=== PATIENT | female | born 1950 | race Caucasian/White ===

== ENCOUNTER → 2017-01-06 | Outpatient (CLI) | payer BC ==
[~2017-01-06] MED LIST: ASPI-232 PO; CALC500C70 PO; CITA10TA4 PO; LEVO112T4 PO; LEVO125T4 PO; NAPR1TAB9 PO; OXYC-57 PO; VAREPAK PO; WARF2TAB PO
--- NOTE | 2017-01-06 09:13 | DIAGNOSTIC IMAGING REPORT ---
RIGHT WRIST MIN 3 VIEWS ROUTINE CLINICAL HISTORY: RIGHT WRIST PAIN Right trauma. Pain. COMPARISON: None. DISCUSSION: Severe degenerative change first carpometacarpal joint. Mild degenerative change second carpometacarpal joint. Intercarpal joints are unremarkable. Radiocarpal joint shows minimal degenerative change. There is no evidence for soft tissue swelling. IMPRESSION: Significant degenerative change first carpometacarpal joint. Minimal degenerative change throughout all remaining osseous structures. Electronically signed by: Jose Armando Poole M.D. 01/06/2017 9:12 AM Dictated Date/Time: 01/06/2017 9:11 AM
== END | disposition home or self-care (01) ==
LOC: C.RDSM 08:10
PROVIDERS: ATTEND Physical Medicine & Rehabilitation Sports Medicine
DX: M25.531 Pain in right wrist (principal)

== ENCOUNTER → 2017-03-04 | Day surgery (SDC) | payer BC ==
[2017-02-20 12:32] LABS: HEMATOCRIT 42.1 % (37-47); MEAN CELL VOLUME 96.3 fL (80-100); MEAN CORPUSCULAR HEMOGLOBIN 31.6 pg (25-34); MEAN CORPUSCULAR HGB CONC 32.8 g/dl (32-36); PLATELET COUNT 239 K/uL (130-400); RED BLOOD COUNT 4.37 M/uL (4.2-5.4)
[2017-02-20 14:35] LABS: BLOOD UREA NITROGEN 21 mg/dl (7-18); CREATININE 0.76 mg/dl (0.60-1.20); GLUCOSE 82 mg/dl (70-99)
[2017-02-20 14:36] LABS: BUN/CREATININE RATIO 27.9 (10-20); CARBON DIOXIDE 30 mmol/L (21-32); CHLORIDE 107 mmol/L (98-107); POTASSIUM 3.9 mmol/L (3.5-5.1); SODIUM 143 mmol/L (136-145)
[2017-02-20 14:39] LABS: ALB/GLOB RATIO 1.2 (0.9-2); ALKALINE PHOSPHATASE 73 U/L (45-117); ALT/SGPT 19 U/L (12-78); AST/SGOT 17 U/L (15-37)
[2017-02-20 15:09] LABS: CALCIUM 9.3 mg/dl (8.5-10.1)
[2017-02-21 09:09] VITALS: Ht 165.1 cm; Wt 87.7 kg
[~2017-03-04] VITALS: Ht 165.1 cm; Wt 87.7 kg
[~2017-03-04] MED LIST changes: +ATROPINE SULFATE 0.1 MG/ML 5ML SYR IV PRN; +BUPIVACAINE 0.5 % 5 MG/1 ML PF 10ML VIAL ONE; +CEFAZOLIN 2000 MG/60 ML D5W IV SCH; +EpHEDrine SULFATE INJ 50 MG/ML AMP IV PRN; +FENTANYL CITRATE INJ 50 MCG/1 ML 2 ML VIAL IV PRN; +FENTANYL CITRATE INJ 50 MCG/1 ML 2 ML VIAL ONE; +LACTATED RINGER'S 1000ML 1,000 ML IV SCH; -LEVO125T4 PO; +LEVO125T5 PO; +LIDOCAINE HCL 2% 2 ML VIAL (20MG/ML) ONE; +LIDOCAINE HCL 2% LOCAL 20 ML VIAL ONE; +MIDAZOLAM HCL 1 MG/ML 2ML VIAL ONE; +ONDANSETRON INJ 2 MG/ML 2 ML VIAL IV PRN; +PROPOFOL IV EMULSION 10 MG/ML 20 ML VIAL IV ONE; +SODIUM CHLORIDE 0.9% 1000ML 1,000 ML IV SCH
--- NOTE | 2017-03-04 06:43 | History & Physical Bridge Note ---
H&P Re-Evaluation Bridge Note: I have examined the patient, reviewed the History & Physical and in the interval since the performance of the History & Physical I have noted the following changes of clinical significance: No changes noted
--- NOTE | 2017-03-04 06:45 | Discharge Instructions ---
Discharge Instructions Date of Service Mar 04, 2017. Visit Reason for Visit: Right Carpal Tunnel Syndrome Discharge Discharge Diagnosis / Problem: same Discharge Goals Goal(s): Decrease discomfort, Improve function Medications Stopped Medications Name(s): na Restart Stopped Medication(s): resume all scripts as directed Activity Recommendations Activity Limitations: as noted below Lifting Limitations: until after follow-up appointment Exercise/Sports Limitations: until after follow-up appointment May Resume Sexual Activity: when tolerated Shower/Bathe: keep incision dry Driving or Machine Use: no limitations Anesthesia . Post Anesthesia Instructions: If you have had General Anesthesia or IV Sedation: * Do not drive today. * Resume driving when surgeon permits. * Do not make important decisions or sign legal documents today. * Call surgeon for: 1. Temperature elevations greater than 101 degrees F. 2. Uncontrollable pain. 3. Excessive bleeding. 4. Persistent nausea and vomiting. 5. Medication intolerance (nausea, vomiting or rash). * For nausea and vomiting use only clear liquids such as: tea, soda, bouillon until nausea subsides, then gradually increase diet as tolerated. * If you have any concerns or questions, call your surgeon's office. If physician is unavailable and it is an emergency, call 911 or go to the nearest emergency room. . Instructions / Follow-Up Instructions / Follow-Up The following are instructions to follow after minor hand surgery. ACTIVITY RECOMMENDATIONS: * Minimize activity until your first visit after surgery. * No excessive walking, jogging, sports or laboring. * Return to activity is individualized. Most patients are able to return to everyday activities within 2 weeks. * Return to sports or intensive labor usually occurs at 1-2 months. * DRIVING: Driving may be resumed when you feel you have adequate pain control and use of the hand. * BATHING: You may shower or sponge-bathe immediately after surgery. The dressing will need to be covered with a plastic bag or plastic wrap until the dressing is changed on the fourth or fifth day after surgery. Once the dressing has been changed on the fourth or fifth day after surgery, you may shower and get the incision wet. * Wash with regular soap and water. * Do not bathe (submerge the incision), soak, swim or use a hot tub until the incision is completely healed over with normal skin and the doctor has given the OK to proceed. * There is no need to apply any ointments, powders or salves to your incision. * Do not apply alcohol or hydrogen peroxide directly to the incision. Diluted peroxide (50:50 mixture with sterile saline) may be used to clean dried blood from around the incision area. WORK/SCHOOL: * You may return to sedentary work or school when you are feeling comfortable. This is usually 3-7 days after surgery. * Expect increased discomfort with increased activity. Continue to elevate and ice the hand as much as possible. DIET: * Resume previous diet. MEDICATIONS: * You will have a prescription for pain medication and an anti-inflammatory medication after surgery. Use the pain pills for severe pain and the anti-inflammatory for less severe pain. * Once the pain pills have run out, try to use the anti-inflammatory. If this is not effective then contact the office for assistance. * The pain medication may cause nausea, constipation and sleepiness. You should see how they affect you before driving or similar activity. * The anti-inflammatory may cause stomach upset and bleeding. If this occurs, let your doctor know immediately . * Some patients may need blood clot prevention. This can be done with either a pill or a simple shot. Your doctor will advise you on when to begin these medications and how to take them. * Do not take aspirin or other anti-inflammatory products (i.e. Advil or Aleve ) if taking blood thinner medication. * Take a stool softener like Colace or a stimulant like Senokot to prevent constipation. SPECIAL CARE INSTRUCTIONS: ICE: * Do not apply ice directly to the skin. * Use a thin dressing or stockinet between the skin and ice bag. The dressing in place after surgery will suffice. * Apply ice for 20-30 minutes and repeat every 2-4 hours. This is especially important for the first 3-7 days after surgery. * Once the pain improves, use ice as needed. ELEVATION: * Keep your hand elevated at or above the level of your heart as much as possible. * Expect some increased discomfort and swelling if you allow your hand to hang down for any length of time. DRESSING: * Your dressing will be changed 4-5 days after surgery by the physical therapist or physician's bakery assistant. Leave your dressing intact until this time. * You may then change your dressing daily with clean dry gauze or Band-aids and a soft wrap or stockinet. * Always wash your hands prior to touching the incision area. * Once the stitches are removed, you may leave the wound open to air or cover with a thin bandage. * There is no need to apply any ointments, powders or salves to your incision. * Expect some bloody drainage for the first few days after surgery. * Leave the tape strips in place (if present) for 5-7 days. * The initial dressing after surgery may become soaked with blood or fluid which is normal. You may reinforce your dressing with clean, dry gauze as needed. BRACE: * Bracing is generally not needed after routine hand surgery. THERAPY: * Physical therapy may be prescribed after your surgery. * For carpal tunnel and trigger digit surgery you may begin moving your fingers and wrist immediately after surgery as tolerated. * Be careful to not overuse. * Once the sutures are removed, further range of motion exercises can be performed. * Hand incisions may be very sensitive for a few months after surgery so avoid excessive pressure on the incision. If necessary, use a padded weightlifters' glove. * You may massage the incision with skin cream to make it less sensitive and reduce scarring. * Hand strength usually returns with normal use. * If needed, squeezing a soft sponge or Play-dough may help. * Your doctor will recommend physical therapy if necessary. PROBLEMS/QUESTIONS: * If you have any problems such as severe pain, numbness, tingling or high fevers or if you have any questions, please contact the office at [phone]. * It is not uncommon to have some numbness and tingling after the surgery especially if you have had a nerve block done. This should gradually improve over the first 1- 2 days. If this persists longer or worsens then contact the office. FOLLOW UP VISIT: * If not already scheduled, please call the office at to schedule follow-up appointments for approximately 10 days, 6 weeks and 3 months after surgery. Diet Recommendations Recommended Home Diet: resume previous diet Procedures Procedures Performed: righ carpal tunnel release Pending Studies Studies pending at discharge: no Medical Emergencies . Who to Call and When: Medical Emergencies: If at any time you feel your situation is an emergency, please call 911 immediately. . Non-Emergent Contact Non-Emergency issues call your: Specialist Call Non-Emergent contact if: temperature is above 101.5 . . "Provider Documentation" section prepared by Braden Mcgrath. .
--- NOTE | 2017-03-04 07:27 | [facility] Post Operative Brief Note ---
Immediate Operative Summary Operative Date Mar 04, 2017. Pre-Operative Diagnosis Right Carpal Tunnel Syndrome Post-Operative Diagnosis Same Procedure(s) Performed [facility] carpal tunnel release Surgeon Dr Mcgrath Utility Worker Surgeon(s) Dr Sun Adams Estimated Blood Loss Trace Findings CTS Fluids (cc crystalloids) 400cc Specimens None Drains none Anesthesia local/sedation Complication(s) None Disposition Recovery Room / PACU
[2017-03-04 07:31] VITALS: TEMP 36.6
--- NOTE | 2017-03-04 07:46 | OPERATIVE REPORT ---
DATE OF OPERATION: 03/04/2017 SURGEON: Dr. Mcgrath. PROTOZOOLOGIST: Dr. Garsia. PREOPERATIVE DIAGNOSIS: Severe carpal tunnel syndrome, right upper extremity. POSTOPERATIVE DIAGNOSIS: Same. OPERATION PERFORMED: Right carpal tunnel release with local by surgeon and IV sedation by anesthesia. PERIOPERATIVE SITUATION: Medically cleared female with intractable carpal tunnel complaints. EMG nerve conduction study and physical exam consistent with same. X-ray also reveals basal joint arthritis which will not be addressed today. OPERATION: The patient appropriately identified, site verified, consent verified, 2 grams of Ancef confirmed as being given. The arm was then anesthetized with 4 mL of 0.5% Marcaine plain and 4 mL of 2% plain lidocaine. Tourniquet was then applied and the arm was prepped and draped in usual routine fashion. Tourniquet inflated to 250 mmHg with exsanguination of limb with a rubber Esmarch bandage for a total of approximately 11 minutes. A curvilinear incision made based on the fourth ray. Sharp dissection carried through skin and blunt dissection down to the palmar fascia. This was then incised under direct vision. Transverse carpal ligament and antebrachial fascia identified, it was incised about 0.5 cm proximal hook of the hamate to the superficial palmar arch. The nerve became hyperemic. The floor of the carpal canal had no masses. The wound was then irrigated and closed with horizontal 4-0 nylon mattress sutures, Dermabond, appropriate dressing, and a splint. The patient transferred to the holding area in satisfactory condition, having tolerated the procedure well. Estimated blood loss trace. Crystalloid 400 mL. No DVT prophylaxis required. I attest to the content of the Intraoperative Record and any orders documented therein. Any exceptio ns are noted below.
[2017-03-04 07:57] VITALS: BP 112/69; PULSE 82; O2SAT 95
--- NOTE | 2017-03-04 07:57 | Anesthesia Progress Nt - [facility] ---
Anesthesia Post Op Note Date & Time Mar 04, 2017 at 07:56 Vital Signs Pain Intensity: 0 Vital Signs Past 12 Hours Date Time Temp Pulse Resp B/P Pulse Ox O2 Delivery O2 Flow Rate FiO2 03/04/17 07:31 36.6 87 18 106/70 95 Room Air 03/04/17 06:23 36.7 96 20 139/60 95 Room Air Notes Mental Status: alert / awake / arousable, participated in evaluation Pt Amnestic to Procedure: Yes Nausea / Vomiting: adequately controlled Pain: adequately controlled Airway Patency, RR, SpO2: stable & adequate BP & HR: stable & adequate Hydration State: stable & adequate Anesthetic Complications: no major complications apparent
== END | disposition home or self-care (01) ==
LOC: X.SURG 06:14
PROVIDERS: ATTEND Physical Medicine & Rehabilitation Sports Medicine
DX: G56.01 Carpal tunnel syndrome, right upper limb (principal); E03.9 Hypothyroidism, unspecified; E66.9 Obesity, unspecified; M19.90 Unspecified osteoarthritis, unspecified site; F32.9 Major depressive disorder, single episode, unspecified; F17.200 Nicotine dependence, unspecified, uncomplicated; Z79.82 Long term (current) use of aspirin; Z87.442 Personal history of urinary calculi; Z86.718 Personal history of other venous thrombosis and embolism; Z83.3 Family history of diabetes mellitus; Z80.0 Family history of malignant neoplasm of digestive organs

== ENCOUNTER → 2017-06-06 | Outpatient (CLI) | payer OTHER ==
[~2017-06-06] MED LIST changes: -ATROPINE SULFATE 0.1 MG/ML 5ML SYR IV PRN; -BUPIVACAINE 0.5 % 5 MG/1 ML PF 10ML VIAL ONE; -CEFAZOLIN 2000 MG/60 ML D5W IV SCH; -EpHEDrine SULFATE INJ 50 MG/ML AMP IV PRN; -FENTANYL CITRATE INJ 50 MCG/1 ML 2 ML VIAL IV PRN; -FENTANYL CITRATE INJ 50 MCG/1 ML 2 ML VIAL ONE; -LACTATED RINGER'S 1000ML 1,000 ML IV SCH; +LEVO125T4 PO; -LEVO125T5 PO; -LIDOCAINE HCL 2% 2 ML VIAL (20MG/ML) ONE; -LIDOCAINE HCL 2% LOCAL 20 ML VIAL ONE; -MIDAZOLAM HCL 1 MG/ML 2ML VIAL ONE; -ONDANSETRON INJ 2 MG/ML 2 ML VIAL IV PRN; -PROPOFOL IV EMULSION 10 MG/ML 20 ML VIAL IV ONE; -SODIUM CHLORIDE 0.9% 1000ML 1,000 ML IV SCH
--- NOTE | 2017-06-06 13:59 | DIAGNOSTIC IMAGING REPORT ---
RIGHT KNEE 4 OR MORE CLINICAL HISTORY: 67 years-old Female presenting with RIGHT KNEE PAIN Right. TECHNIQUE: Bilateral views of the knee and standing position and lateral, tunnel, and sunrise views of the right knee were obtained. COMPARISON: 04/23/2016. FINDINGS: Degenerative changes in the bilateral knees involving both the medial and lateral compartments but most severe in the medial compartments, where there is bilateral joint space loss, osteophytosis, sclerosis, and minimal suggestion of cystic change in the lateral aspect of the medial femoral condyle. The right knee also demonstrates degenerative changes of the patellofemoral compartment. Small knee effusion. No acute fracture. IMPRESSION: Tricompartmental degenerative changes in the right knee most severe in the medial compartment. Bilateral degenerative changes of the knees as above. Electronically signed by: Justin Cardona M.D. 06/06/2017 1:58 PM Dictated Date/Time: 06/06/2017 1:54 PM
== END | disposition home or self-care (01) ==
LOC: C.RDSM 13:45
PROVIDERS: ATTEND Physician Assistant
DX: M17.11 Unilateral primary osteoarthritis, right knee (principal)

== ENCOUNTER 2017-07-02 06:11 | Inpatient (IN) | payer OTHER ==
[2017-06-06 14:17] VITALS: BMI 32.0
--- NOTE | 2017-06-06 14:43 | PAT Medication Instructions ---
Service Date Jun 06, 2017. Current Home Medication List Aspirin (Aspir-81), 1 TAB PO QAM Calcium/Vitamin D (Os-Aurelio 500 Plus D), 1 TAB PO BID Citalopram Hydrobromide (Citalopram Hydrobromide), 1 TAB PO QAM Levothyroxine Sodium (Levothyroxine Sodium), 1 TAB PO QAM Naproxen (Aleve), 220 MG PO PRN Varenicline Tartrate (Chantix), 1 DOSE PO UD Medication Instructions For Your Scheduled Surgery - Check with surgeon for instructions: Naproxen (Aleve), 220 MG PO PRN - Hold the following medications the morning of surgery: Varenicline Tartrate (Chantix), 1 DOSE PO UD Calcium/Vitamin D (Os-Aurelio 500 Plus D), 1 TAB PO BID - Take the following medications the morning of surgery with a sip of water: Citalopram Hydrobromide (Citalopram Hydrobromide), 1 TAB PO QAM Levothyroxine Sodium (Levothyroxine Sodium), 1 TAB PO QAM - Take the following medications as scheduled the night before surgery: Calcium/Vitamin D (Os-Aurelio 500 Plus D), 1 TAB PO BID Aspirin (Aspir-81), 1 TAB PO QPM (okay to continue per surgeon) If you have any questions please call us at [phone] or [phone] or [phone]
--- NOTE | 2017-06-06 15:07 | DIAGNOSTIC IMAGING REPORT ---
TWO VIEW CHEST CLINICAL HISTORY: Preoperative examination. FINDINGS: PA and lateral chest radiographs are obtained. No prior studies are available for comparison at the time of dictation. The cardiomediastinal silhouette is unremarkable. There is atherosclerotic calcification of the thoracic aorta. There is mild elevation of the right hemidiaphragm. Nonspecific interstitial thickening is noted. No airspace consolidation or pleural effusion is identified. There is no pneumothorax. The skeletal structures are osteopenic. Degenerative change is noted throughout the thoracic spine. IMPRESSION: No active disease in the chest. Electronically signed by: Arben Kaplan M.D. 06/06/2017 3:05 PM Dictated Date/Time: 06/06/2017 3:04 PM
[2017-06-06 15:21] LABS: BASO % 0.6 %; BASO ABS # 0.04 K/uL (0-0.2); COMPLETE YES; EOS % 4.6 %; HEMATOCRIT 41.1 % (37-47); IG% 0.1 %; LYMPH % 28.5 %; LYMPH ABS # 1.91 K/uL (1.2-3.4); MEAN CELL VOLUME 94.9 fL (80-100); MEAN CORPUSCULAR HEMOGLOBIN 31.9 pg (25-34); MEAN CORPUSCULAR HGB CONC 33.6 g/dl (32-36); MEAN PLATELET VOLUME 10.8 fL (7.4-10.4); MONO % 6.1 %; NEUT % 60.1 %; PLATELET COUNT 250 K/uL (130-400); RED BLOOD COUNT 4.33 M/uL (4.2-5.4); URINE APPEARANCE CLEAR (CLEAR); URINE COLOR YELLOW; WHITE BLOOD COUNT 6.71 K/uL (4.8-10.8); ZZUR CULT IF INDIC CLEAN CATCH NO
[2017-06-06 15:22] LABS: URINE BILIRUBIN NEG (NEG); URINE NITRITE NEG (NEG); URINE SPECIFIC GRAVITY 1.023 (1.000-1.030); UROBILINOGEN NEG (NEG)
[2017-06-06 15:28] LABS: BUN/CREATININE RATIO 18.6 (10-20); CREATININE 0.8 mg/dl (0.60-1.20); POTASSIUM 4.1 mmol/L (3.5-5.1)
[2017-06-06 15:29] LABS: INR 0.9 (0.9-1.1); PARTIAL THROMBOPLASTIN RATIO 0.9; PROTHROMBIN TIME (PATIENT) 9.8 SECONDS (9.0-12.0)
[2017-06-06 15:40] LABS: MANUAL MICROSCOPIC REQUIRED? NO; REVIEW REQ? NO
--- NOTE | 2017-06-11 09:33 | HISTORY & PHYSICAL EXAMINATION ---
DATE OF ADMISSION: 07/02/2017 CHIEF COMPLAINT: Right knee pain. HISTORY OF PRESENT ILLNESS: This 67-year-old white female presented to the office with complaints of right knee pain that she has been experiencing for the last several years. Pain has become worse with time. She has tried viscosupplementation as well as oral pain medications and activity modification without lasting relief. She now has daily pain. It is affecting her ADLs. She is limping. She elects to proceed with total knee arthroplasty in hopes of alleviating her pain. No numbness or tingling. X-rays have been obtained. PAST MEDICAL HISTORY: Significant for hypothyroidism, history of DVT, obesity, osteoarthritis, kidney stones, depression, anxiety, and history of breast cancer with subsequent radiation. PREVIOUS SURGERIES: Carpal tunnel release in February 2017. Right breast lumpectomy, umbilical hernia repair, wisdom tooth extraction, and bilateral foot bunionectomies. FAMILY HISTORY: Significant for diabetes and pancreatic cancer. ALLERGIES: NKDA. CURRENT MEDICATIONS: Levothyroxine 125 mcg p.o. daily, citalopram 10 mg p.o. daily, calcium daily, and aspirin 81 mg daily. SOCIAL HISTORY: The patient uses cigarettes 3/4 pack per day for the last 30 years. Rare ETOH use. . REVIEW OF SYSTEMS: Significant for above stated conditions, otherwise unremarkable. PHYSICAL EXAMINATION: GENERAL: Well-developed and well-nourished elderly white female in no acute distress. Sitting in a chair. Alert and oriented. SKIN: Warm and dry with fair turgor. No rashes or lesions. No ecchymosis or erythema. No intraarticular effusion. HEENT: Normocephalic and atraumatic. Eyes PERRLA, EOMI. Nares patent bilaterally without turbinate enlargement. Oropharynx is without erythema or exudate. No lesions noted. Uvula midline. Oral mucosa moist. Fair dentition. HEART: RRR. No MGR. LUNGS: Clear to auscultation bilaterally. No crackles, rhonchi or wheezing. Fair air movement. She is able to take a deep breath. ABDOMEN: Moderately obese. Bowel sounds present x4, soft and nontender. No organomegaly. No masses. MUSCULOSKELETAL: Right knee evaluation reveals no intraarticular effusion. She has full terminal extension. Flexion to greater than 100 degrees. Strength is 5/5 with fair quad tone. She has focal discomfort with palpation over the medial and lateral joint lines. Medial was worse. Stable collateral ligaments. No defect in the patellar tendon or quadriceps tendon. Ambulatory with an antalgic gait. NEUROLOGIC: Gross sensation is intact across the lower extremities by soft touch. Peripheral pulses are 2+. Cranial nerves II-XII are intact. DATA: Radiographic imaging obtained previously shows end-stage DJD of her knees. Films were read by radiology. Periarticular osteophytes, subchondral sclerosis, and joint space narrowing are present. IMPRESSION: Right knee end-stage degenerative joint disease. PLAN: Informed written consent was obtained to proceed with right total knee arthroplasty. Postoperative prescriptions for Percocet and Coumadin will be provided at discharge from the hospital. Anticipate discharge to home with outpatient PT. She already has a walker. Preoperative lab work, EKG, and chest x-ray have been ordered. Medical clearance has been requested from her PCP, Dr. Ny, in [place].
[~2017-07-02] VITALS: Ht 165.1 cm; Wt 87.5 kg
[2017-07-02] VITALS (10 sets, daily range): BP systolic 95–124; BP diastolic 54–74; PULSE 71–83; TEMP 36.6–37; O2SAT 92–98; Ht 165.1 cm; Wt 87.5 kg
[~2017-07-02 06:11] MED LIST changes: +CEFAZOLIN 2000 MG/60 ML D5W 60 ML IV SCH; +LACTATED RINGER'S 1000ML 1,000 ML IV SCH; +LACTATED RINGER'S 1000ML IV SCH; -LEVO112T4 PO; -OXYC-57 PO; +ROPIVACAINE 5MG/ML 30 ML 150 MG, BUPIVACAINE/EPINEPHR 0.5% MPF 30 ML, KETOROLAC TROMETH... INFIL SCH; -WARF2TAB PO
--- NOTE | 2017-07-02 06:23 | History & Physical Bridge Note ---
H&P Re-Evaluation Bridge Note: I have examined the patient, reviewed the History & Physical and in the interval since the performance of the History & Physical I have noted the following changes of clinical significance:consent obtained.No changes noted
[2017-07-02] MEDS ORDERED: TRANEXAMIC ACID INJ 1,000 MG in SODIUM CHLORIDE 0.9% 100ML 100 ML IV SCH (06:30)
[2017-07-02] MEDS ORDERED: TRANEXAMIC ACID INJ 1,000 MG in SODIUM CHLORIDE 0.9% 100ML 100 ML TOP SCH (06:30)
[2017-07-02] MEDS ORDERED: BUPIVACAINE 0.25% 30 ML VIAL ONE (07:15)
[2017-07-02] MEDS ORDERED: BUPIVACAINE 0.5 % 5 MG/1 ML PF 10ML VIAL ONE (07:15)
[2017-07-02] MEDS ORDERED: FENTANYL CITRATE INJ 50 MCG/1 ML 2 ML VIAL ONE (07:52)
[2017-07-02] MEDS ORDERED: MIDAZOLAM HCL 1 MG/ML 2ML VIAL ONE (07:52)
[2017-07-02] MEDS ORDERED: ORTHO JOINT ANESTHETIC ONE (08:44)
[2017-07-02] MEDS ORDERED: POVIDONE-IODINE OP SOLN 30 ML BTL ONE (08:44)
[2017-07-02] MEDS ORDERED: EpHEDrine SULFATE INJ 50 MG/ML AMP IV PRN (09:00)
[2017-07-02] MEDS ORDERED: ATROPINE SULFATE 0.1 MG/ML 5ML SYR IV PRN (09:00)
--- NOTE | 2017-07-02 10:27 | [facility] Post Operative Brief Note ---
Immediate Operative Summary Operative Date Jul 02, 2017. Pre-Operative Diagnosis Right Knee, End Stage Degenerative Joint Disease Post-Operative Diagnosis Same as preoperative Procedure(s) Performed Right Total Knee Arthroplasty Surgeon Dr. Braden Mcgrath Vacuum Applicator Operator Surgeon(s) Ghulam Jean PA-C Estimated Blood Loss 50ml Findings djd r knee Fluids (cc crystalloids) 1800cc Specimens A.) Right Knee Bone and Tissue Drains none Anesthesia spinal Complication(s) None Disposition Recovery Room / PACU
[2017-07-02] MEDS ORDERED: LIDOCAINE HCL 2% 2 ML VIAL (20MG/ML) ONE (10:29)
[2017-07-02] MEDS ORDERED: PROPOFOL IV EMULSION 10 MG/ML 20 ML VIAL IV ONE (10:29)
[2017-07-02] MEDS ORDERED: BISACODYL 10 MG SUPP PR PRN (10:30)
[2017-07-02] MEDS ORDERED: MAGNESIUM HYDROXIDE SUSP 30 ML UDC PO PRN (10:30)
[2017-07-02] MEDS ORDERED: ALUMINUM/MAGNESIUM/SIMETH (MAALOX MAX) 30 ML UDC PO PRN (10:30)
[2017-07-02] MEDS ORDERED: ACETAMINOPHEN 325 MG TAB PO PRN (10:30)
[2017-07-02] MEDS ORDERED: ACETAMINOPHEN IV 100 ML IV PRN (10:30)
[2017-07-02] MEDS ORDERED: ONDANSETRON INJ 2 MG/ML 2 ML VIAL IV PRN (10:30)
[2017-07-02] MEDS ORDERED: DiphenhydrAMINE HCL 50 MG/ML VIAL IV PRN (10:30)
[2017-07-02] MEDS ORDERED: MoRPHine SULFATE 2 MG/ML CARP IV PRN (10:30)
[2017-07-02] MEDS ORDERED: METOCLOPRAMIDE HCL INJ 5 MG/ML 2 ML VIAL IV PRN (10:30)
--- NOTE | 2017-07-02 10:39 | [facility] Operative Report ---
Operative Report Operative Date Jul 02, 2017. Pre-Operative Diagnosis Right Knee, End Stage Degenerative Joint Disease Post-Operative Diagnosis Right knee Same as preop Procedure(s) Performed Right Total Knee Arthroplasty Surgeon Dr. Braden Mcgrath Team Assembly Line Machine Operator Surgeon(s) Ghulam Jean PA-C Estimated Blood Loss 50ml Findings DJD right knee Fluids 1800cc Specimens A.) Right Knee Bone and Tissue Drains none Anesthesia spinal Complication(s) None Disposition Recovery Room / PACU Indications This 67-year-old white female presented to the office with complaints of intractable right knee pain. She had tried conservative care measures including activity modification, oral anti-inflammatories, and injection therapy. She elected to proceed with surgical intervention in hopes of alleviating her pain. Preoperative x-rays were obtained. Description of Procedure The patient was administered a spinal anesthetic and then taken to the operating room where she was given sedation. She was prepped and draped in usual sterile fashion. Please see Dr. Mcgrath's operative report for specifics of the procedure. I was present for the entire case from initial patient positioning through final wound closure. Assistance was provided in tissue traction, hemostasis, trial implant placement, final implant placement, and final wound closure. Patient was taken to the recovery room in satisfactory condition. I attest to the content of the Intraoperative Record and any orders documented therein. Any exceptions are noted below.
--- NOTE | 2017-07-02 10:45 | OPERATIVE REPORT ---
DATE OF OPERATION: 07/02/2017 PREOPERATIVE DIAGNOSIS: Osteoarthritis, right knee. POSTOPERATIVE DIAGNOSIS: Same. OPERATION PERFORMED: Cemented right total knee replacement. SURGEON: Dr. Mcgrath. RECORD CENTER COORDINATOR: Ghulam Jean PA-C. No resident or fellow available. SUMMARY OF IMPLANTS: Size 3 posterior cruciate substituting femur, size 3 rotating tibial platform tray, oval domed 3 pegged patella size 35, inserting rotating platform tibial insert posterior cruciate stabilized size 3 10 mm thick, J&J RP system. Two bags of Palacos G cement. ESTIMATED BLOOD LOSS: 50 mL. CRYSTALLOID: Roughly 2000 mL. PERIOPERATIVE SITUATION: Medically cleared female with intractable knee pain has had significant discomfort for over a decade, wants to proceed with surgical treatment. Physical exam and x-ray reveal significant varus alignment, osteoarthritis medial compartment narrowing. She has failed all conservative management. Consent obtained. All risks identified. OPERATION: The patient appropriately identified, site verified, consent verified, 2 grams of Ancef confirmed as being given. The right lower extremity was prepped and draped in usual routine fashion. Tourniquet inflated to 300 mmHg after exsanguination of the limb with a rubber Esmarch bandage. Total tourniquet time was roughly 50 minutes. Midline exposure utilized. Parapatellar arthrotomy performed. Synovectomy completed. Osteophytes resected. Distal femur entered. The cruciates resected. Distal femur resected 12 mm. Proximal tibia resected 4 mm. The extension gap was slightly tight, soft tissue balancing eliminated that problem. The femur was sized between a 3 and 4, was measured 4 cut 3. There was no notching. The flexion gap was excellent. The box cut was made and the size 3 trial fit well. The tibia was broached and reamed to a size 3. The 10 mm spacer offered good maximum stability and full range of motion including mid range flexion. Patella was sized to a 35 but was resected leaving 15 mm and the seating holes made and the trial tracked well. All trial implants were removed. The wound was irrigated with Betadine, Pulsavac and then TXA was injected after irrigation with the Orthomix and then the permanent cemented into position. After 12 minutes, the tourniquet deflated. After additional 2 minutes, the knee was flexed, the trial spacer removed, the wound was irrigated with Betadine and Pulsavac. There was no cement that needed to be removed. The knee was then reduced with the permanent spacer seated and closed with #1 Ethibond, #1 Vicryl, 2-0 Vicryl and stainless steel clips. Appropriate soft tissue dressing applied. The patient transferred to recovery room in satisfactory condition having tolerated the procedure well. Estimated blood loss 50 mL. Crystalloid roughly 2000 mL. SUMMARY OF IMPLANTS: As noted above. DVT prophylaxis with Coumadin. I attest to the content of the Intraoperative Record and any orders documented therein. Any exception s are noted below.
--- NOTE | 2017-07-02 10:59 | Anesthesiology Progress Note ---
Anesthesia Post Op Note Date & Time Jul 02, 2017 at 10:59 Vital Signs Pain Intensity: 0 Vital Signs Past 12 Hours Date Time Temp Pulse Resp B/P (MAP) Pulse Ox O2 Delivery O2 Flow Rate FiO2 07/02/17 10:45 73 13 90/57 (69) 94 Nasal Cannula 2 07/02/17 10:35 76 12 108/57 95 Nasal Cannula 2 07/02/17 10:27 36.7 84 15 100/56 (67) 95 Nasal Cannula 2 07/02/17 06:44 37 80 18 124/64 97 Room Air Notes Mental Status: alert / awake / arousable, participated in evaluation Pt Amnestic to Procedure: Yes Nausea / Vomiting: adequately controlled Pain: adequately controlled Airway Patency, RR, SpO2: stable & adequate BP & HR: stable & adequate Hydration State: stable & adequate Neuraxial Anesthesia: was administered, sensory block is resolving Anesthetic Complications: no major complications apparent
--- NOTE | 2017-07-02 11:03 | DIAGNOSTIC IMAGING REPORT ---
RIGHT KNEE 2 VIEWS History: Right total knee arthroplasty. Degenerative arthritis. Postop. FINDINGS: The patient is status post a right total knee arthroplasty. The hardware is intact. No fracture or dislocation. Skin meredith are in place. IMPRESSION: Right total knee arthroplasty. No evidence for hardware complication. Electronically signed by: Wilton Riley M.D. 07/02/2017 11:02 AM Dictated Date/Time: 07/02/2017 11:01 AM
--- NOTE | 2017-07-02 11:19 | PROGRESS NOTE ---
DATE: 07/02/2017 Postop check status post right total knee replacement. The patient seen in recovery room. She is comfortable. She denies chest pain, shortness of breath, fever, chills, nausea or vomiting. Vital signs are stable. She is afebrile. Neurovascular check is limited by her spinal. X-ray postop AP and lateral knee reveals anatomic alignment, everything looks excellent. ASSESSMENT: Doing well status post total knee replacement right knee. Will continue with care pathway. Mobilize when spinal effect has worn off.
[2017-07-02] MEDS ORDERED: MoRPHine SULFATE 4 MG/ML 1 ML CARP\\VIAL IV PRN (12:00)
[2017-07-02] MEDS ORDERED: D5W AND 1/2NSS + 20MEQ KCL 1,000 ML IV SCH (12:00)
[2017-07-02] MEDS: FERROUS GLUCONATE 324 MG TAB PO SCH ×2 (14:04→19:28)
[2017-07-02] MEDS: KETOROLAC TROMETHAMINE 15 MG/ML VIAL IV. SCH ×2 (14:05→19:56)
[2017-07-02] MEDS ORDERED: WARF2TAB PO (15:39)
[2017-07-02] MEDS ORDERED: OXYC-57 PO (15:39)
[2017-07-02] MEDS ORDERED: WARFARIN SOD 5 MG TAB PO ONE (16:00)
--- NOTE | 2017-07-02 16:05 | PROGRESS NOTE ---
DATE: 07/02/2017 PM PROGRESS NOTE DATE: 07/02/2017 The patient is doing well. No nausea, vomiting, chest pain, shortness of breath, fever or chills. Vital signs stable, afebrile. Neurovascular check is normal. Wound dressing clean, dry and intact. Will Hep-Lock IV if tolerates dinner well and mobilize. Follow up in a.m. Potential discharge tomorrow.
[2017-07-02] MEDS: CEFAZOLIN IV 2,000 MG in DEXTROSE 5% 50ML 50 ML IV SCH ×2 (16:37→23:19)
[2017-07-02] MEDS ORDERED: ASPIRIN 81 MG ECTAB PO SCH (21:00)
[2017-07-02] MEDS: DOCUSATE SODIUM 100 MG CAP PO SCH (21:07)
[2017-07-02] MEDS ORDERED: ACETAMINOPHEN 500 MG TAB PO PRN (22:00)
[2017-07-03] MEDS: OXYCODONE HCL IR 5 MG TAB (IMMEDIATE RELEASE) PO PRN ×2 (00:09→11:32)
[2017-07-03] MEDS: KETOROLAC TROMETHAMINE 15 MG/ML VIAL IV. SCH ×2 (01:54→07:34)
[2017-07-03 03:56] VITALS: BP 107/68; PULSE 74; TEMP 36.9; O2SAT 95
[2017-07-03] MEDS ORDERED: LEVOTHYROXINE 125 MCG TAB PO SCH (06:00)
[2017-07-03 06:26] LABS: HEMATOCRIT 35.4 % (37-47); MEAN CELL VOLUME 94.9 fL (80-100); MEAN CORPUSCULAR HEMOGLOBIN 31.1 pg (25-34); MEAN CORPUSCULAR HGB CONC 32.8 g/dl (32-36); PLATELET COUNT 217 K/uL (130-400); PROTHROMBIN TIME (PATIENT) 10.5 SECONDS (9.0-12.0); RED BLOOD COUNT 3.73 M/uL (4.2-5.4)
[2017-07-03 06:51] LABS: BUN/CREATININE RATIO 18.5 (10-20); CALCIUM 8.2 mg/dl (8.5-10.1); CREATININE 0.8 mg/dl (0.60-1.20); POTASSIUM 4.3 mmol/L (3.5-5.1)
[2017-07-03] MEDS ORDERED: DEXAMETHASONE INJ 10 MG in SYRINGE 0 ML IV SCH (07:30)
--- NOTE | 2017-07-03 07:43 | PROGRESS NOTE ---
DATE: 07/03/2017 Postop day #1: Status post right total knee replacement. At this point in time, the patient denies any chest pain, shortness of breath, fever, chills, nausea, vomiting or headache. Vital signs are stable. She is afebrile. Neurovascular check, right lower extremity within normal limits. Has good quad control with good straight leg raise. Wound dressing clean, dry and intact. Calves nontender Abdomen, nontender. LABORATORY WORK: Reveals hematocrit stable in the mid 30s and electrolytes are good. ASSESSMENT: Doing well, is up and ambulatory. Her pain is well managed. We will discharge today after a.m. PT/OT around lunchtime. Discharge on 6 mg Coumadin a day.
--- NOTE | 2017-07-03 07:46 | DISCHARGE SUMMARY ---
CHIEF COMPLAINT: Right knee pain. HISTORY OF PRESENT ILLNESS: A 67-year-old female, admitted for elective right total knee replacement. Her hospital course has been uneventful. She has been ambulatory in the [facility]. She is voiding, drinking, taking oral pain medications. Pain is well managed. PAST MEDICAL HISTORY: Remarkable for hypothyroidism, history of DVT, obesity, osteoarthritis, kidney stones, depression, anxiety, breast cancer and radiation therapy. PAST SURGICAL HISTORY: Include carpal tunnel release, breast lumpectomy, umbilical hernia repair, wisdom tooth extraction and bilateral foot bunionectomies. FAMILY HISTORY: Remarkable for diabetes, pancreatic cancer. ALLERGIES: None. PREADMISSION MEDICATIONS: Include thyroid supplementation, levothyroxine 125 mcg daily, citalopram 10 mg daily, calcium supplement and aspirin 81 mg daily. SOCIAL HISTORY: Reveals she is , smokes 3/4 of a pack of cigarettes per day for the last 30 years. Rare alcohol use. She is . REVIEW OF SYSTEMS: As noted above. PHYSICAL EXAMINATION: Orthopedic assessment reveals calves, nontender. Wound clean, dry and intact. Neurovascular check, femoral, sciatic nerve is normal. Abdomen soft, nontender. Postop x-rays look excellent. ASSESSMENT: Doing well, status post right total knee replacement performed yesterday. Will discharge today after a.m. PT around lunchtime. Will follow up in the office in 2 weeks. Discharge on 6 mg Coumadin daily. Check INR on Friday.
[2017-07-03 07:57] VITALS: BP 120/82; PULSE 73; TEMP 36.8; O2SAT 93
[2017-07-03] MEDS ORDERED: WARF2TAB PO (08:30)
--- NOTE | 2017-07-03 08:31 | Discharge Instructions ---
Discharge Instructions Date of Service Jul 02, 2017. Admission Reason for Admission: Right Knee Degenerative Joint Disease Discharge Discharge Diagnosis / Problem: Right knee s/p total knee replacement Discharge Goals Goal(s): Decrease discomfort, Improve function, Increase independence Activity Recommendations Activity Limitations: as noted below Lifting Limitations: gradually increase as tolerated Exercise/Sports Limitations: until after follow-up appointment Shower/Bathe: keep incision dry Driving or Machine Use: No driving until cleared by Dr. Mcgrath Weightbearing Status: Right weightbearing (as tolerated) . Instructions / Follow-Up Instructions / Follow-Up New Medicine: * You will likely be taking one or more of these medications: 1. Percocet - Take, as directed, when you need it, every four to six hours to control your pain. 2. Coumadin - Thins your blood to lessen the chance of forming a blood clot. The dose of this is different for each person and is based on your blood tests that are done twice a week. * The most common side effects of pain medicine and iron are nausea and constipation. If nausea or constipation is too much of a problem or if you have any questions about your new medicines or doses, call [facility] at . We will try to help you manage these issues. VERY IMPORTANT TO READ AND REVIEW" Blood Clots and Blood Thinning Medicine: * You are given Coumadin during the immediate post-operative period to lessen the risk of blood clots forming in your legs and/or lungs. Coumadin is usually given for six weeks after surgery. * The prescription is for 2 mg tablets. At discharge, you should understand your dose and take it all at the same time every day, preferably after dinner. * You need to get your blood checked 1 - 2 times per week for six weeks or as directed. * If your dose needs to change, we will call you. Do not take your medication on the day of the blood test until we call you. Pain: * The immediate post-operative period after knee replacement surgery is often quite painful. * You are given a prescription for pain medicine. You should take it, as directed, when you need it, especially before physical therapy and before going to bed. Pain that interferes with sleep is very common and can last several months. * You will likely need pain medicine for the first four to six weeks. It will not stop all of the pain. The pain will lessen and as you feel better, you may change to milder pain medicine such as Tylenol. * The most common side effects of pain medicine are nausea and constipation, so don't take more than you need. Physical Therapy: * You will have physical therapy two or three times each week for four to six weeks after your surgery in order to regain your knee range of motion and to retrain your knee to work properly. * It is just as important to make sure you are getting your knee perfectly straight as it is to regain your knee bend. * Taking a pain pill an hour before therapy can help you have a more productive and comfortable therapy session if needed. Home Exercise: * You were shown a series of exercises (heel props, heel slides, etc.) in the hospital. Do these exercises three to four times each day including the exercises you were shown in physical therapy. Walking: * Get up and walk several times each day. For the first four weeks, try not to stand or walk for more than one hour at a time. If you do stand or walk for more than one hour, you will not hurt anything, but your knee and leg will likely swell. * As you feel comfortable, you may change from the walker or crutches to a cane and then to independent walking. SELF CARE INSTRUCTIONS AFTER TOTAL KNEE REPLACEMENT A. You may need to continue a physical therapy program after discharge from the hospital. There are several options available to you. Your doctor will assist you in selecting the best one for you. 1. An out-patient facility 2 to 3 times a week for therapy or home therapy. 2. Continue working on all exercises taught to you in the hospital. Your goals should be to increase bending of your knee to 90 degrees and beyond and to fully straighten your knee. B. You may progress at your own pace from walking with a walker or crutches to a cane; then to no assistive devices. C. Make walking a part of your daily routine. Be up as much as comfortable with rest periods throughout the day. Rest with leg elevation is very important. Use the ice wrap frequently for the first 3-4 weeks. D. There are no restrictions on activities. You may ride in a car, shop, participate in community development officer and all social activities. E. Wear the long elastic stockings (RITA hose) 20 hours a day for six weeks after surgery. They can be removed several times a day for laundering and for a shower. F. Do not place a pillow behind your knee when resting. A pillow at your ankle is okay. VERY IMPORTANT TO READ AND REVIEW A. Take Coumadin, Aspirin or Lovenox (blood thinning medications) as directed by your doctor. If on Coumadin, have a pro-time (blood test) drawn according to your doctor's instructions. This will tell the doctor how well the Coumadin is thinning your blood. 1. YOU WILL BE GIVEN AN ORDER AT DISCHARGE FOR PT/INR (BLOOD WORK). PLEASE HAVE THIS DONE INSTRUCTED. PLEASE CALL OUR OFFICE AFTER YOUR BLOODWORK IS COMPLETE SO WE CAN TRACK YOUR RESULTS. IF YOU ARE GOING TO OUTPATIENT PHYSICAL THERAPY, YOU WILL NEED TO GO TO OUTPATIENT TESTING TO HAVE IT DRAWN. B. There are a few signs you need to watch for after you are home. Call [facility] if you notice any of the followin. Increased severe knee pain. Some pain is expected especially when you exercise. 2. Increased swelling in your leg or knee; pain or swelling of the calf muscle in either lower leg. 3. Any fluid drainage from the incision. 4. Shortness of breath or chest pain. C. Please call [facility] at if you have any concerns or questions about your operation or recovery. The doctor or his nurse will return your call promptly. D. You must take antibiotics before dental work, bladder, bowel or other surgery. Call the office to obtain a prescription at least 2 days prior to your appointment. * CALL IF INCREASED PAIN, REDNESS, DRAINAGE OR FEVER GREATER THAT 101. * Sutures should be removed 12-14 days after surgery unless you are on chronic steriods, then it will be 14-18 days after surgery. Call your doctor if: * Temperature above 101 degrees F. * Pain not relieved by pain medicine ordered. * Increased drainage or redness from incision. * Notify your doctor with any questions or concerns. Current Hospital Diet Patient's current hospital diet: AHA Diet (Heart Healthy) Discharge Diet Recommended Diet: Regular Diet Procedures Procedures Performed: Right Total Knee Arthroplasty Pending Studies Studies pending at discharge: no Medical Emergencies . Who to Call and When: Medical Emergencies: If at any time you feel your situation is an emergency, please call 911 immediately. . Non-Emergent Contact Non-Emergency issues call your: Primary Care Provider, Surgeon Call Non-Emergent contact if: temperature is above 101, wound has increased drainage, wound has increased redness, wound has increased pain, you have any medication questions . "Provider Documentation" section prepared by Ghulam Jean PA-C. . VTE Core Measure Inpt VTE Proph given/why not?: Warfarin (Coumadin), T.E.Shaniqua Stockings, SCD's [place] Drug Monitoring Program Search Results: no issues identified
[2017-07-03] MEDS: DOCUSATE SODIUM 100 MG CAP PO SCH (08:48)
[2017-07-03] MEDS: FERROUS GLUCONATE 324 MG TAB PO SCH ×2 (08:48→12:30)
--- NOTE | 2017-07-03 08:54 | Anesthesiology Progress Note ---
Anesthesia Post Op Note Date & Time Jul 03, 2017 at 08:53 Vital Signs Pain Intensity: 2.0 Vital Signs Past 12 Hours Date Time Temp Pulse Resp B/P (MAP) Pulse Ox O2 Delivery O2 Flow Rate FiO2 07/03/17 07:57 36.8 73 14 120/82 (95) 93 Room Air 07/03/17 03:56 36.9 74 16 107/68 (81) 95 Room Air 07/02/17 23:15 Room Air 07/02/17 22:52 36.6 71 16 117/72 (87) 94 Room Air Notes Mental Status: alert / awake / arousable Pt Amnestic to Procedure: Yes Nausea / Vomiting: adequately controlled Pain: adequately controlled Airway Patency, RR, SpO2: stable & adequate BP & HR: stable & adequate Hydration State: stable & adequate
[2017-07-03] MEDS ORDERED: MULTIVITAMIN TAB PO SCH (09:00)
[2017-07-03] MEDS ORDERED: CITALOPRAM 20 MG TAB PO SCH (09:00)
[2017-07-03] MEDS ORDERED: PANTOprazole SOD 40 MG TAB PO SCH (09:00)
[2017-07-03 09:35] VITALS: O2SAT 93
[2017-07-03 12:24] VITALS: BP 118/78; PULSE 72; TEMP 36.9; O2SAT 90
[2017-07-03] MEDS ORDERED: WARFARIN SOD 5 MG TAB PO SCH (16:00)
== END 2017-07-03 14:50 | disposition home or self-care (01) | DRG 470 ==
LOC: C.ACU 06:11 → C.3E 06:30 → ENRESERV 10:44
PROVIDERS: ADMIT Physical Medicine & Rehabilitation Sports Medicine; ATTEND Physical Medicine & Rehabilitation Sports Medicine
PROC: 0SRC0J9 Replacement of Right Knee Joint with Synthetic Substitute, Cemented, Open Approach (ICD-10-PCS; principal; 2017-07-02 08:45)
DX: M17.11 Unilateral primary osteoarthritis, right knee (principal); M21.161 Varus deformity, not elsewhere classified, right knee; J44.9 Chronic obstructive pulmonary disease, unspecified; E03.9 Hypothyroidism, unspecified; K21.9 Gastro-esophageal reflux disease without esophagitis; F17.210 Nicotine dependence, cigarettes, uncomplicated; F41.9 Anxiety disorder, unspecified; F32.9 Major depressive disorder, single episode, unspecified; E66.9 Obesity, unspecified; Z68.32 Body mass index [BMI] 32.0-32.9, adult; Z86.718 Personal history of other venous thrombosis and embolism; Z79.82 Long term (current) use of aspirin; Z79.899 Other long term (current) drug therapy

== ENCOUNTER → 2017-08-18 | Outpatient (CLI) | payer OTHER ==
[~2017-08-18] MED LIST changes: -CEFAZOLIN 2000 MG/60 ML D5W 60 ML IV SCH; -LACTATED RINGER'S 1000ML 1,000 ML IV SCH; -LACTATED RINGER'S 1000ML IV SCH; -NAPR1TAB9 PO; +OXYC-57 PO; -ROPIVACAINE 5MG/ML 30 ML 150 MG, BUPIVACAINE/EPINEPHR 0.5% MPF 30 ML, KETOROLAC TROMETH... INFIL SCH; +WARF2TAB PO
== END | disposition home or self-care (01) ==
LOC: C.RDSM 15:11
PROVIDERS: ATTEND Physical Medicine & Rehabilitation Sports Medicine
DX: M17.11 Unilateral primary osteoarthritis, right knee (principal)

== ENCOUNTER → 2018-03-09 | Outpatient (CLI) | payer OTHER ==
[~2018-03-09] MED LIST changes: +AMOX500C3 PO; -LEVO125T4 PO; +LEVO125T5 PO; +NAPR1TAB9 PO; -OXYC-57 PO; -VAREPAK PO; +VAREPAK2 PO
--- NOTE | 2018-03-13 11:21 | CODING QUERY NO DIAGNOSIS ---
: 1950 TREATMENT RENDERED WITHOUT A DIAGNOSIS To promote full compliance with coding requirements relating to patient care, physician participation is requested in all cases of rug cleaner hand uncertainty. Please assist us with providing a diagnosis/symptom for the test(s) below: A diagnosis/symptom was not documented on your Order. A valid diagnosis/symptom is required to bill all insurances. Please remember that we are unable to code a diagnosis of rule out, probable, possible, questionable, or suspected. Tests that require a diagnosis: DOS: 03/06/18 * KNEE XRAY DIAGNOSIS: Provider Signature: Date: Thank you Bethany Singh [facility] Information Management Once completed, please kindly fax back to [phone] For questions please call [phone]
== END | disposition home or self-care (01) ==
LOC: C.RDSM 14:25
PROVIDERS: ATTEND Physical Medicine & Rehabilitation Sports Medicine
DX: M25.562 Pain in left knee (principal)